=== PATIENT | female | born 1950 | race Caucasian/White ===

== ENCOUNTER → 2016-11-01 | Outpatient (CLI) | payer BC ==
[~2016-11-01] MED LIST: AMB5 PO; ATOR-24 PO; CALCTAB5 PO; CMD2 PO; FLUO20CA35 PO; OMEG10007 PO; SUMA100T16 PO
[2016-11-01 17:05] LABS: BASO ABS # 0.06 K/uL (0-0.2); COMPLETE YES; EOS % 2.3 %; HEMATOCRIT 36.6 % (37-47); LYMPH % 34.9 %; LYMPH ABS # 2.11 K/uL (1.2-3.4); MEAN CELL VOLUME 94.1 fL (80-100); MEAN CORPUSCULAR HEMOGLOBIN 30.8 pg (25-34); MEAN CORPUSCULAR HGB CONC 32.8 g/dl (32-36); MEAN PLATELET VOLUME 11.4 fL (7.4-10.4); MONO % 9.9 %; NEUT % 51.9 %; PLATELET COUNT 239 K/uL (130-400); RED BLOOD COUNT 3.89 M/uL (4.2-5.4); WHITE BLOOD COUNT 6.05 K/uL (4.8-10.8)
[2016-11-01 17:41] LABS: ALT/SGPT 37 U/L (12-78); AST/SGOT 19 U/L (15-37); BLOOD UREA NITROGEN 18 mg/dl (7-18); BUN/CREATININE RATIO 18.6 (10-20); CALCIUM 8.9 mg/dl (8.5-10.1); CARBON DIOXIDE 23 mmol/L (21-32); CHLORIDE 110 mmol/L (98-107); CHOLESTEROL 196 mg/dl (0-200); CREATININE 0.95 mg/dl (0.60-1.20); GLUCOSE 81 mg/dl (70-99); POTASSIUM 3.8 mmol/L (3.5-5.1); SODIUM 143 mmol/L (136-145)
[2016-11-01 17:44] LABS: ALKALINE PHOSPHATASE 70 U/L (45-117); CHOLESTEROL/HDL RATIO 2.9; HDL CHOLESTEROL 67 mg/dl; LDL CHOLESTEROL CALCULATED 98 mg/dl; TRIGLYCERIDES 154 mg/dl (0-150); VERY LOW DENSITY LIPOPROT CALC 31 mg/dl
[2016-11-02 08:17] LABS: ESTIMATED AVERAGE GLUCOSE 120 mg/dl; HA1C FLAG Normal (Normal)
== END | disposition home or self-care (01) ==
LOC: C.LABBFT 17:14
PROVIDERS: ATTEND Internal Medicine
DX: E78.5 Hyperlipidemia, unspecified (principal); R73.01 Impaired fasting glucose

== ENCOUNTER → 2017-06-04 | Outpatient (CLI) | payer BC | END | disposition home or self-care (01) | LOC: C.LABBFT 09:26 | PROVIDERS: ATTEND Internal Medicine | DX: E78.5 Hyperlipidemia, unspecified (principal) ==